=== PATIENT | female | born 1950 | race Caucasian/White ===

== ENCOUNTER 2018-07-10 06:19 | Day surgery (SDC) | payer OTHER ==
[~2018-07-10 06:19] MED LIST: LOSARTAN-HCTZ1 EAC2 PO
[2018-07-10] MEDS ORDERED: MACROBID 100 M100 MG PO (10:36)
[2018-07-10] MEDS ORDERED: ULTRACET PO (10:36)
== END 2018-07-10 14:10 | disposition home or self-care (01) ==
LOC: CIR.AMB 06:19
DX: N81.5 Vaginal enterocele (principal); N81.6 Rectocele

== ENCOUNTER 2018-11-20 06:45 | Day surgery (SDC) | payer OTHER ==
[~2018-11-20 06:45] MED LIST changes: +MACROBID 100 M100 MG PO; +OXYBUTYNIN CHLO15 MG; +ULTRACET PO
[2018-11-20] MEDS ORDERED: ULTRACET PO (10:37)
[2018-11-20] MEDS ORDERED: MACROBID 100 M100 MG PO (10:37)
== END 2018-11-20 15:50 | disposition home or self-care (01) ==
LOC: CIR.AMB 06:45
DX: N81.6 Rectocele (principal); N81.5 Vaginal enterocele